=== PATIENT | female | born 1975 | race American Indian/Alaskan Native ===

== ENCOUNTER → 2018-04-01 13:00 | Outpatient (REF) | payer OTHER, SELFPAY | LOC: LAB 13:00 | PROVIDERS: Family Provider Family Medicine; PCP Family Medicine; Visit Provider Surgery | DX: N61.1 Abscess of the breast and nipple (principal) | CPT/HCPCS: 87070; 87075; 87077; 87186; 87205 ==

== ENCOUNTER → 2019-01-20 10:11 | Outpatient (CLI) | payer OTHER, SELFPAY | LOC: LAB 10:11 | PROVIDERS: Family Provider Family Medicine; PCP Family Medicine; Visit Provider Physician Assistant | DX: J02.9 Acute pharyngitis, unspecified (principal) | CPT/HCPCS: 87070 ==

== ENCOUNTER → 2024-07-29 11:17 | Outpatient (CLI) | payer OTHER, SELFPAY ==
--- NOTE | 2024-07-29 11:19 | DI.MG.S_ITS ---
MM screening mammo BI: 07/29/2024. BI-RADS: 0 CLINICAL: 49-year old female for bilateral screening mammogram. Tyrer-Cuzick lifetime risk of 5.3%. No personal or first-degree family history of breast cancer. The patient had a prior right breast biopsy. PRIOR EXAMS 04/03/2017, 02/21/2015. MAMMOGRAPHY TECHNIQUE: 2D and 3D (tomosynthesis) digital mammographic views obtained, with additional images as needed for full coverage. Current study was also evaluated with a Computer Aided Detection (CAD) system. DENSITY B. There are scattered areas of fibroglandular density. MAMMOGRAPHY FINDINGS Right: Central, Middle depth: Mass needing additional imaging evaluation. Left: No suspicious mass, asymmetry, microcalcification, or other abnormality seen. IMPRESSION: Right (Mass): Central, Middle depth * Incomplete - mass needing additional imaging evaluation. Left * No evidence of malignancy. RECOMMENDATIONS Right: Central, Middle depth * Further evaluation with diagnostic mammography and diagnostic ultrasound. Ultrasound to be performed only if needed. OVERALL ASSESSMENT CATEGORY BI-RADS-0: Incomplete - Need Additional Imaging Evaluation. ELECTRONICALLY SIGNED: Eliana Fernández M.D. on 07/29/2024 at 01:36:03 PM PT Interpreting Station ID: [id number]
== END ==
PROVIDERS: Family Provider Family Medicine; PCP Family Medicine; Referring Provider Family Medicine; Visit Provider Family Medicine
DX: Z12.31 Encounter for screening mammogram for malignant neoplasm of breast (principal); N63.10 Unspecified lump in the right breast, unspecified quadrant
CPT/HCPCS: 77063; 77067

== ENCOUNTER → 2024-08-30 10:13 | Outpatient (CLI) | payer OTHER, SELFPAY ==
--- NOTE | 2024-08-30 10:14 | DI.MG.S_ITS ---
MM diagnostic mammo unilat RT, US breast RT limited: 08/30/2024 BI-RADS: 4 CLINICAL: 49-year old female for right diagnostic mammogram and right diagnostic breast ultrasound that is a recall from screening on 07/29/2024. Tyrer-Cuzick lifetime risk of 5.3%. No personal or first-degree family history of breast cancer. The patient had a prior right breast biopsy. PRIOR EXAMS Mammogram(s): 07/29/2024. Three Other Exams on 04/03/2017, 02/21/2015. MAMMOGRAPHY TECHNIQUE: 2D and 3D (tomosynthesis) digital mammographic views obtained, with additional images as needed for full coverage. Current study was also evaluated with a Computer Aided Detection (CAD) system. ULTRASOUND TECHNIQUE TARGETED Right Breast Ultrasound: Real-time ultrasound exam was performed focused to area of clinical and/or imaging concern. Real-time oseguera scale and color doppler imaging of the area of clinical interest was performed with image documentation. DENSITY Right: B. There are scattered areas of fibroglandular density. MAMMOGRAPHY FINDINGS Right (finding-1): Upper at 12:00, Middle depth, measuring 2.6cm. Previous report: Central: Correlating with findings on screening mammogram, there is an asymmetry present. ULTRASOUND FINDINGS Right (finding-1): Upper Inner at 1:30, measuring 2.8 x 1.8 x 2.1 cm. Previous report: Central: Correlating with findings on mammogram there is an oval, indistinct, hypoechoic mass that is parallel showing no posterior acoustic features. Doppler shows internal vascularity. Right: Axilla: No abnormal lymph nodes are seen in the axilla. No suspicious sonographic finding with typically benign findings noted. IMPRESSION: Right (Mass): Upper Inner at 1:30, measuring 2.8 x 1.8 x 2.1 cm. Previous report: Central * Suspicious findings with likelihood of malignancy. RECOMMENDATIONS Right: Upper Inner at 1:30 * Ultrasound-guided vacuum-assisted biopsy for further evaluation. COMMENTS: The above findings and recommendations were discussed with the patient by the on-site radiologist at the time of the exam. OVERALL ASSESSMENT CATEGORY BI-RADS-4: Suspicious. ELECTRONICALLY SIGNED: Leeroy Larkin M.D. on 08/30/2024 at 12:02:59 PM PT Interpreting Station ID: [id number]
== END ==
LOC: MAMMO 10:13
PROVIDERS: Family Provider Family Medicine; PCP Family Medicine; Referring Provider Family Medicine; Visit Provider Family Medicine
DX: R92.8 Other abnormal and inconclusive findings on diagnostic imaging of breast (principal); N63.12 Unspecified lump in the right breast, upper inner quadrant
CPT/HCPCS: 76642; 77065; G0279

== ENCOUNTER → 2024-10-08 14:12 | Outpatient (CLI) | payer OTHER, SELFPAY ==
--- NOTE | 2024-10-08 14:13 | DI.US.S_ITS ---
Right US bx breast perc w vac device: 10/08/2024. Rad-Path Correlation: Pending CLINICAL: 49-year old female for right procedure that resulted from diagnostic mammogram on 08/30/2024. Tyrer-Cuzick lifetime risk of 5.3%. No personal or first-degree family history of breast cancer. The patient had a prior right breast biopsy. PRIOR EXAMS Mammogram(s): 08/30/2024, 07/29/2024. Breast Ultrasound(s): 08/30/2024. Three Other Exams on 04/03/2017, 02/21/2015. CONSENT Risks including but not limited to bleeding and infection, benefits and alternatives were discussed with the patient. The patient agreed to the procedure and signed informed consent. Time out procedure was used. ROUTINE Right: Patient positioned in the supine or supine-oblique position, prepped and draped in the usual manner using sterile technique. TECHNIQUE Right: Upper Inner at 1:30: Procedure: Ultrasound-guided vacuum-assisted biopsy of a mass. Device: 14-gauge vacuum-assisted biopsy instrument. Bard(R) Monopty(R) 14g. Anesthesia: Local anesthesia obtained using 1%-lidocaine. Secondary local anesthesia obtained using 2%-lidocaine with epinephrine. Skin Entry: Incision with #11 blade. Targeting Confirmation: Real-time Observation and Post-Procedure Imaging. Post-procedure imaging: Post-procedure imaging confirms in target location. Rad/Path Correlation: Pending receipt of pathology report. Conclusion: Ultrasound-guided Vacuum-assisted biopsy with post-procedure CC and ML mammographic views, Right: Upper Inner at 1:30 COMPLICATIONS: No complications were encountered while the patient was in our department. DISPOSITION The patient left our department in good condition with aftercare instructions and urged to contact us should any problem arise. The breast was compressed to achieve hemostasis. SUMMARY Right: Upper Inner at 1:30: Ultrasound-guided vacuum-assisted biopsy of a mass. PATHOLOGY Right: Upper Inner at 1:30: Radiologist-Pathologist Correlation: Pending receipt of pathology report. ELECTRONICALLY SIGNED: Dash Castro M.D. on 10/08/2024 at 03:50:22 PM PT Interpreting Station ID: [id number]
--- NOTE | 2024-10-08 14:14 | DI.MG.S_ITS ---
MM clip placement RT: 10/08/2024. BI-RADS: None CLINICAL: 49-year old female for right diagnostic mammogram that is a recall from screening on 07/29/2024. Tyrer-Cuzick lifetime risk of 5.3%. No personal or first-degree family history of breast cancer. The patient had a prior right breast biopsy. PRIOR EXAMS Mammogram(s): 08/30/2024, 07/29/2024. Breast Ultrasound(s): 08/30/2024. MAMMOGRAPHY TECHNIQUE: 2D and 3D (tomosynthesis) digital mammographic views obtained, with additional images as needed for full coverage. Current study was also evaluated with a Computer Aided Detection (CAD) system. DENSITY Right: B. There are scattered areas of fibroglandular density. MAMMOGRAPHY FINDINGS Right: Upper Inner at 1:30: There is a (Tumark(R) Vision) biopsy marker present. IMPRESSION: Right * Biopsy marker present. OVERALL ASSESSMENT CATEGORY BI-RADS None: This exam requires no BI-RADS. ELECTRONICALLY SIGNED: Dash Castro M.D. on 10/08/2024 at 03:51:21 PM PT Interpreting Station ID: [id number]
--- NOTE | 2024-10-08 15:24 | PATH_ITS ---
[facility] Accession Number: [id number] No. of containers..01 Tissue . 01 Material submitted: . breast - RT BREAST . 01 Clinical history: . 3 SAMPLES, 1 JAR . 01 Diagnosis: RIGHT BREAST UPPER INNER AT 1:30: Fibroglandular tissue, consistent with fibroadenoma, with focal usual ductal hyperplasia. Negative for epithelial atypia or malignancy. MRV 10/11/2024 1526 Local . 01 Comment: This case is also reviewed by Dr. Martinez (Susan Caldwell, who agrees with the interpretation. . 01 Electronically signed: . Janelle Peña MD, Pathologist NPI- [id number] . 01 Gross description: . Received is one formalin-filled container labeled with the patient's name and labeled Rt. breast 1:30 (remaining part of source not legible). Received in a container with a plastic filter and sample loose in container and consists of multiple fragments of yellow-frazier soft tissue which range in size from 0.3 x 0.2 x 0.2 cm to 0.5 x 0.4 x 0.3 cm. All fragments are totally submitted in cassette A1. . Possible collection date per requisition 10/08/2024. Possible collection time 1443 hours per container. No time in formalin provided. Cold ischemic time cannot be calculated. Total fixation time approximately 13 hours. (DC:[id number]) / 10/09/2024 1921 Local . 01 Pathologist provided ICD-10: N63.10 . 01 CPT . 454636 Specimen Comment: A courtesy copy of this report has been sent to [phone], [phone] Specimen Comment: [id number] Performed at: [address] [facility] [id number] MD Braeden Koch MD Phone: [phone]
== END ==
LOC: US 14:13
PROVIDERS: PCP Family Medicine; Referring Provider Family Medicine; Visit Provider Family Medicine
DX: N63.10 Unspecified lump in the right breast, unspecified quadrant (principal)
CPT/HCPCS: 19083; 77065